=== PATIENT | male | born 1930 | race Caucasian/White ===

== ENCOUNTER 2018-03-11 00:08 | Inpatient (IN) | payer MEDICARE ==
--- NOTE | 2018-03-11 00:44 | ED ---
Respiratory - HPI Summary HPI Summary: Patient with history of Alzheimer's. Per , complains of productive cough, weakness 2 days. Patient normally ambulatory, unable to walk to the bathroom today, with subsequent incontinence. denies speech deficits, facial droop , unilateral weakness, fever, N/V, work of breathing, indication of pain. Patient denies any pain, or any other symptoms. Medical history is Alzheimer's , COPD, GERD, HDL. Denies cardiac history. Last admission to hospital 1 year ago. Patient lives at home. No recent course of antibiotics. gave patient 500 mg azithromycin today. Not on home O2. - History of Current Complaint Stated Complaint: WEAKNESS Time Seen by Provider: 03/11/18 00:23 Hx Obtained From: Patient, Family/Automation Controls Engineer Onset/Duration: Gradual Onset Timing: Constant Initial Severity: Mild Current Severity: Moderate Character: Cough (Productive) Sputum Color: Yellow - Risk Factors Pulmonary Embolism Risk Factors: Negative Cardiac Risk Factors: Elevated Lipids Pseudomonas Risk Factors: Chronic Lung Disease - Allergy/Home Medications Allergies/Adverse Reactions: Allergies Allergy/AdvReac Type Severity Reaction Status Date / Time Penicillins Allergy Unknown Verified 03/11/18 00:41 Reaction Details Home Medications: Home Medications Donepezil TAB* [Aricept 5 MG TAB*] 10 mg PO DAILY 03/11/18 [History Confirmed ] Lansoprazole [Prevacid] 15 mg PO DAILY 03/11/18 [History Confirmed 03/11/18] Lovastatin [Altoprev] 20 mg PO DAILY 03/11/18 [History Confirmed 03/11/18] Memantine TAB* [Namenda TAB*] 10 mg PO BID 03/11/18 [History Confirmed 03/11/18] Theophylline TAB* [Alex Dur*] 400 mg PO DAILY 03/11/18 [History Confirmed ] PMH/Surg Hx/FS Hx/Imm Hx Endocrine/Hematology History: Denies: Hx Diabetes Musculoskeletal History: Comment Only: Other Musculoskeletal History - Bilateral knee replacements. Sensory History: Reports: Hx Contacts or Glasses Opthamlomology History: Reports: Hx Contacts or Glasses Neurological History: Reports: Hx Dementia - Surgical History Surgery Procedure, Year, and Place: Bilat knee replacements. Infectious Disease History: Denies: Traveled Outside the [place] in Last 30 Days - Social History Substance Use Type: Reports: None Review of Systems Constitutional: Negative Eyes: Negative ENT: Negative Cardiovascular: Negative Respiratory: Negative Gastrointestinal: Negative Genitourinary: Negative Musculoskeletal: Negative Skin: Negative Neurological: Negative Positive: Weakness. Negative: Slurred Speech Psychological: Normal All Other Systems Reviewed And Are Negative: Yes Physical Exam - Summary Physical Exam Summary: Neuro exam normal. Abdomen soft nontender. Triage Information Reviewed: Yes Vital Signs Reviewed: Yes Appearance: Positive: Well-Appearing Skin: Positive: Warm Head/Face: Positive: Normal Head/Face Inspection Eyes: Positive: Normal Neck: Positive: Supple Respiratory/Lung Sounds: Positive: Breath Sounds Present Cardiovascular: Positive: Normal Abdomen Description: Positive: Nontender Musculoskeletal: Positive: Normal Neurological: Positive: Normal Psychiatric: Positive: Normal AVPU Assessment: Alert - [place] Coma Scale Best Eye Response: 4 - Spontaneous Best Motor Response: 6 - Obeys Commands Best Verbal Response: 5 - Oriented Coma Scale Total: 15 Diagnostics - Laboratory Result Diagrams: 03/11/18 00:55 03/11/18 00:55 Lab Statement: Any lab studies that have been ordered have been reviewed, and results considered in the medical decision making process. - Radiology cxr Xray Interpretation: Positive (See Comments) - Bibasilar infiltrates Radiology Interpretation Completed By: ED Physician - EKG 1 Cardiac Rate: NL EKG Rhythm: Sinus Rhythm ST Segment: Normal Disposition - Course Course Of Treatment: Patient nonseptic. Borderline PO2. Troponin elevated. - Diagnoses Provider Diagnoses: Community acquired pneumonia, Elevated troponin I level Discharge - Sign-Out/Discharge Documenting (check all that apply): Sign-Out Patient Signing out patient TO: Veena Sesay - pending admission and review by hospitalist - Discharge Plan Condition: Stable Disposition: ADMITTED TO [facility] Referrals: Dharmesh Crespo MD [Primary Care Provider] - - Billing Disposition and Condition Condition: STABLE [place] [place]
[2018-03-11 01:15] LABS: ABS Basophils 0.1 10^3/ul (0-0.2); ABS Eosinophils 0 10^3/ul (0-0.6); ABS Lymphocytes 0.6 10^3/ul (1.0-4.8); ABS Monocytes 0.5 10^3/ul (0-0.8); ABS Neutrophils 4.5 10^3/ul (1.5-7.7); ABS Nucleated RBC 0 10^3/ul; Eosinophil % 0.9 % (0-6); Hematocrit 37 % (42-52); Hemoglobin 12.7 g/dl (14.0-18.0); Lymphocyte % 11.2 % (25-47); Mean Corpuscular HGB Conc 34 g/dl (31-36); Mean Corpuscular Hemoglobin 32 pg (27-31); Mean Corpuscular Volume 94 fL (80-94); Mean Platelet Volume 7.2 um3 (7.4-10.4); Nucleated Red Blood Cells % 0.1; Platelet Count 185 10^3/ul (150-450); Red Blood Count 3.93 10^6/ul (4.0-5.4); Red Cell Distribution Width 13 % (10.5-15); White Blood Count 5.8 10^3/ul (3.5-10.8)
[2018-03-11] MEDS ORDERED: Albuterol/Ipratropium NEB.SOL* Albuterol 2.5 MG/Ipratropium 0.5 MG 3 ML INH ONE (01:15)
[2018-03-11] MEDS ORDERED: Azithromycin IV* 500 MG ADVAN VIAL/BAG IVPB ONE (01:18)
[2018-03-11] MEDS ORDERED: Levofloxacin 750 MG IVPREMIX(* 750 MG/150 ML BAG IVPB ONE (01:23)
[2018-03-11] MEDS ORDERED: methylPREDNISolone 125 MG* 2 ML VIAL IV ONE (01:23)
[2018-03-11 01:31] LABS: EGFR Non-African American 58.7 (>60)
[2018-03-11] MEDS ORDERED: LORazepam INJ* 2 MG/ML 1 ML VIAL IV PUSH ONE (02:59)
[2018-03-11] MEDS ORDERED: LORazepam INJ* 2 MG/ML 1 ML VIAL ONE (03:00)
[2018-03-11] MEDS ORDERED: Acetaminophen TAB* 325 MG PO PRN (05:16)
[2018-03-11] MEDS ORDERED: CMCS - Melatonin (NF) 3 MG TAB PO PRN (05:17)
[2018-03-11] MEDS ORDERED: Ondansetron INJ* 2 MG/ML VIAL IV PRN (05:17)
[2018-03-11] MEDS ORDERED: NS 0.9% 1000 ML* 1,000 ML IV SCH (05:30)
[2018-03-11] MEDS ORDERED: Ondansetron ODT TAB* 4 MG PO PRN (05:40)
[2018-03-11] MEDS ORDERED: Albuterol 2.5 MG/3 ML NEB.SOL* (0.083%) INH PRN (06:30)
--- NOTE | 2018-03-11 06:38 | HP ---
H&P (Free Text) History and Physical: PCP: Patricia Crespo MD Date/Time: 03/11/2018 0500 CC: generalized weakness HPI: Mr Dan is an 87YO male HX Alzheimer's, COPD, GERD w/ Mckay's esophagus, HLD, & BPH who presents from home where his related to ED staff he has been becoming progressively weak associated with productive cough over the past 2 days. He is typically able to ambulate without much difficulty, but experienced incontinence today due to not being able to walk steadily. Upon my evaluation he is somnolent from lorazepam and cannot be roused enough to answer questions. Per ED nursing, he was confused and agitated making him unable to give a history prior to sedation. As such this information is obtained from ED staff and the available medical record. PMedHx Alzheimer's COPD GERD w/ Mckay's esophagus HLD BPH Ambulatory Orders Donepezil TAB* [Aricept 5 MG TAB*] 10 mg PO DAILY 03/11/18 Lansoprazole [Prevacid] 15 mg PO DAILY 03/11/18 Lovastatin [Altoprev] 20 mg PO DAILY 03/11/18 Memantine TAB* [Namenda TAB*] 10 mg PO BID 03/11/18 Theophylline TAB* [Alex Dur*] 400 mg PO DAILY 03/11/18 Allergies Penicillins Allergy (Verified 03/11/18 00:41) Unknown Reaction Details PSurgHx B TKA SocHx: no tobacco, occasional alcohol, no recreational drugs; lives with his ; full code status, needs revisiting FamHx: unobtainable ROS: as above, otherwise reviewed and all were negative vitals: Vital Signs Temp 37.6 C 03/11/18 00:36 Pulse 80 03/11/18 04:04 Resp 20 03/11/18 04:04 BP 115/73 03/11/18 04:04 Pulse Ox 93 03/11/18 04:04 Intake & Output 03/10/18 03/10/18 03/11/18 11:59 23:59 11:59 Intake Total 500 Balance 500 Weight 79.379 kg Intake: IV Fluids 250 IVPB 250 Constitutional: NAD, normally developed, well-nourished elderly white male HEENM: atraumatic; sclera/conjunctiva: anicteric/mildly injected OU; hearing: unable to assess; oropharynx: clear, mucosa tacky Neck: soft tissue: no nuchal rigidity; thyroid: normal Pulmonary: scant crackles R base, fair aeration, no accessory muscle use CV: RR/RR, normal S1S2, no carotid bruit, no jugular venous distention, 2+ B DP/ PT, 1+ BLE edema Abdominal: soft, non-distended, non-tender, no rebound/guarding/rigidity, normoactive bowel sounds, no hepatosplenomegaly or masses, no costovertebral angle tenderness Musculoskeletal: general: grossly intact, shins tender to palpation Integumental: normal appearance and texture of exposed skin Psychiatric orientation: somnolent, arouses, mumbles incoherently and quickly returns to sleep affect: somnolent mood: acquiescent eye contact: poor content: absent responses: mumbles incoherently when awakened, withdraws purposefully to noxious stimuli; moves extremities x4 insight: poor Testing: Lab Results 03/11/18 03/11/18 03/11/18 Range/Units 00:55 00:55 00:55 WBC 5.8 (3.5-10.8) 10^3/ul RBC 3.93 L (4.0-5.4) 10^6/ul Hgb 12.7 L (14.0-18.0) g/dl Hct 37 L (42-52) % MCV 94 (80-94) fL MCH 32 H (27-31) pg MCHC 34 (31-36) g/dl RDW 13 (10.5-15) % Plt Count 185 (150-450) 10^3/ul MPV 7.2 L (7.4-10.4) um3 Neut % (Auto) 77.6 (38-83) % Lymph % (Auto) 11.2 L (25-47) % [place] % (Auto) 9.1 H (0-7) % Eos % (Auto) 0.9 (0-6) % Baso % (Auto) 1.2 (0-2) % Absolute Neuts (auto) 4.5 (1.5-7.7) 10^3/ul Absolute Lymphs (auto) 0.6 L (1.0-4.8) 10^3/ul Absolute Monos (auto) 0.5 (0-0.8) 10^3/ul Absolute Eos (auto) 0 (0-0.6) 10^3/ul Absolute Basos (auto) 0.1 (0-0.2) 10^3/ul Absolute Nucleated RBC 0 10^3/ul Nucleated RBC % 0.1 ABG pH (7.35-7.45) ABG pCO2 (35-45) mmHg ABG pO2 (80-100) mmHg ABG HCO3 (19-31) mmol/L ABG O2 Saturation (95-98) % ABG Base Excess (-2.0-2.0) Sodium 138 L (139-145) mmol/L Potassium 4.2 (3.5-5.0) mmol/L Chloride 103 (101-111) mmol/L Carbon Dioxide 27 (22-32) mmol/L Anion Gap 8 (2-11) mmol/L BUN 16 (6-24) mg/dL Creatinine 1.17 (0.67-1.17) mg/dL Est GFR ( Amer) 75.5 (>60) Est GFR (Non-Af Amer) 58.7 (>60) BUN/Creatinine Ratio 13.7 (8-20) Glucose 117 H (70-100) mg/dL Lactic Acid 1.2 (0.5-2.0) mmol/L Calcium 9.7 (8.6-10.3) mg/dL Total Bilirubin 0.60 (0.2-1.0) mg/dL AST 16 (13-39) U/L ALT 10 (7-52) U/L Alkaline Phosphatase 56 (34-104) U/L Troponin I 0.04 H* (<0.04) ng/mL B-Natriuretic Peptide ( - 100) pg/mL Total Protein 7.2 (6.4-8.9) g/dL Albumin 4.2 (3.2-5.2) g/dL Globulin 3.0 (2-4) g/dL Albumin/Globulin Ratio 1.4 (1-3) 03/11/18 03/11/18 03/11/18 Range/Units 01:05 01:23 03:27 WBC (3.5-10.8) 10^3/ul RBC (4.0-5.4) 10^6/ul Hgb (14.0-18.0) g/dl Hct (42-52) % MCV (80-94) fL MCH (27-31) pg MCHC (31-36) g/dl RDW (10.5-15) % Plt Count (150-450) 10^3/ul MPV (7.4-10.4) um3 Neut % (Auto) (38-83) % Lymph % (Auto) (25-47) % [place] % (Auto) (0-7) % Eos % (Auto) (0-6) % Baso % (Auto) (0-2) % Absolute Neuts (auto) (1.5-7.7) 10^3/ul Absolute Lymphs (auto) (1.0-4.8) 10^3/ul Absolute Monos (auto) (0-0.8) 10^3/ul Absolute Eos (auto) (0-0.6) 10^3/ul Absolute Basos (auto) (0-0.2) 10^3/ul Absolute Nucleated RBC 10^3/ul Nucleated RBC % ABG pH 7.48 H (7.35-7.45) ABG pCO2 37 (35-45) mmHg ABG pO2 60 L (80-100) mmHg ABG HCO3 27.9 (19-31) mmol/L ABG O2 Saturation 94.6 L (95-98) % ABG Base Excess 4.0 H (-2.0-2.0) Sodium (139-145) mmol/L Potassium (3.5-5.0) mmol/L Chloride (101-111) mmol/L Carbon Dioxide (22-32) mmol/L Anion Gap (2-11) mmol/L BUN (6-24) mg/dL Creatinine (0.67-1.17) mg/dL Est GFR ( Amer) (>60) Est GFR (Non-Af Amer) (>60) BUN/Creatinine Ratio (8-20) Glucose (70-100) mg/dL Lactic Acid (0.5-2.0) mmol/L Calcium (8.6-10.3) mg/dL Total Bilirubin (0.2-1.0) mg/dL AST (13-39) U/L ALT (7-52) U/L Alkaline Phosphatase (34-104) U/L Troponin I 0.04 H* (<0.04) ng/mL B-Natriuretic Peptide 104 H ( - 100) pg/mL Total Protein (6.4-8.9) g/dL Albumin (3.2-5.2) g/dL Globulin (2-4) g/dL Albumin/Globulin Ratio (1-3) ECG, personally reviewed: NSR rate 84, Q-waves V1-3, no ischemia CXR, personally reviewed: possible RLL infiltrate, although could be atelectasis compared to prior Impression: 87M presenting with suspected CAP DIAGNOSIS & PLAN Primary suspect CAP : IV levofloxacin 750mg IV Q48H, renal dosing : IVFs : blood & sputum CXs : supplemental oxygen : supportive care Secondary Alzheimer's : continue donepezil & memantine COPD : continue theophylline : albuterol nebs PRN GERD w/ Mckay's esophagus : continue lansoprazole HLD : continue lovastatin Admission Rational: inpatient for IVFs & IV ABX for CAP in patient at high risk of mortality/morbidity; inappropriate for outpatient status DVTp: SCDs & heparin SQ Code Status: full, needs revisiting HCP:
[2018-03-11 07:03] LABS: ABS Basophils 0 10^3/ul (0-0.2); ABS Eosinophils 0 10^3/ul (0-0.6); ABS Lymphocytes 0.4 10^3/ul (1.0-4.8); ABS Monocytes 0.1 10^3/ul (0-0.8); ABS Neutrophils 4.3 10^3/ul (1.5-7.7); ABS Nucleated RBC 0 10^3/ul; Eosinophil % 0 % (0-6); Hematocrit 34 % (42-52); Lymphocyte % 9.1 % (25-47); Mean Corpuscular HGB Conc 35 g/dl (31-36); Mean Corpuscular Hemoglobin 32 pg (27-31); Mean Corpuscular Volume 93 fL (80-94); Mean Platelet Volume 6.6 um3 (7.4-10.4); Nucleated Red Blood Cells % 0; Platelet Count 174 10^3/ul (150-450); Red Blood Count 3.69 10^6/ul (4.0-5.4); Red Cell Distribution Width 13 % (10.5-15); White Blood Count 4.9 10^3/ul (3.5-10.8)
[2018-03-11 07:19] LABS: INR 0.99 (0.77-1.02)
[2018-03-11 07:25] LABS: EGFR Non-African American 62.4 (>60)
[2018-03-11] MEDS: Donepezil TAB* 5 MG PO SCH ×2 (08:31→12:43)
[2018-03-11] MEDS: guaiFENesin ER TAB 600 MG PO SCH ×3 (08:31→19:51)
[2018-03-11] MEDS: Docusate CAP* 100 MG PO SCH ×3 (08:31→19:51)
[2018-03-11] MEDS: Atorvastatin* 10 MG TAB PO SCH ×2 (08:32→12:43)
[2018-03-11] MEDS: Memantine TAB* 10 MG PO SCH ×3 (08:32→19:51)
[2018-03-11] MEDS: Omeprazole CAP* 20 MG PO SCH ×2 (08:32→12:43)
[2018-03-11] MEDS: THEOPHYLLINE TAB.SA* 200 MG PO SCH (08:40)
--- NOTE | 2018-03-11 09:19 | RAD ---
Indication: Weakness. Comparison: April 27, 2013 Technique: Upright AP 0054 hours Report: Mild predominant linear bibasilar consolidation. Rarefaction of the interstitial markings. Grossly clear pleural spaces. Negative for pneumothorax. The heart, pulmonary vasculature, and mediastinal contours are unremarkable. IMPRESSION: Stigmata of emphysema. Bibasilar consolidation most suspicious for atelectasis.
[2018-03-11 18:34] LABS: Urine Appearance Clear; Urine Blood 1+ (Negative); Urine Color Straw; Urine Ketones Negative (Negative); Urine Protein Negative (Negative); Urine Specific Gravity 1.009 (1.010-1.030); Urine Urobilinogen Negative (Negative)
[2018-03-12] MEDS ORDERED: Benzonatate CAP* 100 MG PO PRN (05:07)
[2018-03-12] MEDS: Heparin VIAL(*) 5000 UNITS/ML VIAL (FIVE THOUSAND) SUBCUT SCH ×3 (05:56→21:17)
[2018-03-12 06:01] LABS: ABS Basophils 0 10^3/ul (0-0.2); ABS Eosinophils 0 10^3/ul (0-0.6); ABS Lymphocytes 1.6 10^3/ul (1.0-4.8); ABS Neutrophils 5.5 10^3/ul (1.5-7.7); ABS Nucleated RBC 0 10^3/ul; Eosinophil % 0.2 % (0-6); Hematocrit 35 % (42-52); Hemoglobin 12.2 g/dl (14.0-18.0); Lymphocyte % 19.7 % (25-47); Mean Corpuscular HGB Conc 35 g/dl (31-36); Mean Corpuscular Hemoglobin 33 pg (27-31); Mean Corpuscular Volume 94 fL (80-94); Mean Platelet Volume 7.2 um3 (7.4-10.4); Nucleated Red Blood Cells % 0; Platelet Count 175 10^3/ul (150-450); Red Blood Count 3.76 10^6/ul (4.0-5.4); Red Cell Distribution Width 13 % (10.5-15); White Blood Count 8.1 10^3/ul (3.5-10.8)
[2018-03-12 06:26] LABS: EGFR Non-African American 65.8 (>60)
[2018-03-12] MEDS: guaiFENesin ER TAB 600 MG PO SCH ×2 (08:42→21:00)
[2018-03-12] MEDS: Atorvastatin* 10 MG TAB PO SCH (08:42)
[2018-03-12] MEDS: Docusate CAP* 100 MG PO SCH ×2 (08:43→20:59)
[2018-03-12] MEDS: THEOPHYLLINE TAB.SA* 200 MG PO SCH (08:43)
[2018-03-12] MEDS: Omeprazole CAP* 20 MG PO SCH (08:44)
[2018-03-12] MEDS: Donepezil TAB* 5 MG PO SCH (08:44)
[2018-03-12] MEDS: Memantine TAB* 10 MG PO SCH ×2 (08:44→21:00)
--- NOTE | 2018-03-12 18:31 | PN ---
Subjective Date of Service: 03/12/18 Interval History: . still very confused pulled out IV overnight disoriented still with oxygen requirement and receiving IV antibiotics. denies new pain. shortness of breath ongoing. . Family History: Unchanged from Admission Social History: Unchanged from Admission Past Medical History: Unchanged from Admission Objective Active Medications: . Acetaminophen (Tylenol Tab*) 650 mg PO Q6H PRN PRN Reason: FEVER/PAIN Albuterol (Ventolin 2.5 Mg/3 Ml Neb.Ernestine*) 2.5 mg INH Q2H PRN PRN Reason: SOB/WHEEZING Atorvastatin Calcium (Lipitor*) 5 mg PO DAILY [facility] Last Admin: 03/12/18 08:42 Dose: 5 mg Benzonatate (Tessalon Cap*) 100 mg PO BID PRN PRN Reason: COUGH Last Admin: 03/12/18 05:56 Dose: 100 mg Docusate Sodium (Colace Cap*) 200 mg PO BID [facility] Last Admin: 03/12/18 08:43 Dose: 200 mg Donepezil HCl (Aricept Tab*) 10 mg PO DAILY [facility] Last Admin: 03/12/18 08:44 Dose: 10 mg Guaifenesin (Mucinex*) 1,200 mg PO BID [facility] Last Admin: 03/12/18 08:42 Dose: 1,200 mg Heparin Sodium (Porcine) (Heparin Vial(*)) 5,000 units SUBCUT Q8HR [facility] Last Admin: 03/12/18 13:10 Dose: 5,000 units Levofloxacin/Dextrose (Levaquin 750 Mg Ivpremix(*)) 750 mg in 150 mls @ 100 mls /hr IVPB Q48H [facility] Melatonin (Melatonin (Nf)) 3 mg PO BEDTIME PRN; Protocol PRN Reason: Sleep Memantine (Namenda Tab*) 10 mg PO BID [facility] Last Admin: 03/12/18 08:44 Dose: 10 mg Omeprazole (Prilosec Cap*) 20 mg PO DAILY [facility] PRN Reason: Protocol Last Admin: 03/12/18 08:44 Dose: 20 mg Ondansetron HCl (Zofran Odt Tab*) 4 mg PO Q6H PRN PRN Reason: NAUSEA/VOMITING Theophylline (Alex Dur*) 400 mg PO DAILY [facility] Last Admin: 03/12/18 08:43 Dose: 400 mg . Vital Signs - 8 hr 03/12/18 03/12/18 11:18 15:27 Temperature 98.3 F 97.3 F Pulse Rate 69 71 Respiratory 17 22 Rate Blood Pressure 143/88 141/91 (mmHg) O2 Sat by Pulse 93 96 Oximetry Oxygen Devices in Use Now: Nasal Cannula Appearance: elderly, frail; demented Eyes: No Scleral Icterus Ears/Nose/Mouth/Throat: NL Teeth, Lips, Gums, Clear Oropharnyx, Mucous Membranes Moist Neck: NL Appearance and Movements; NL JVP Respiratory: Symmetrical Chest Expansion and Respiratory Effort, Clear to Auscultation Cardiovascular: NL Sounds; No Murmurs; No JVD Abdominal: NL Sounds; No Tenderness; No Distention Lymphatic: No Cervical Adenopathy Extremities: No Edema Skin: No Rash or Ulcers Neurological: NL Sensation Lines/Tubes/Other Access: Clean, Dry and Intact Peripheral IV Nutrition: Taking PO's Result Diagrams: 03/12/18 05:29 03/12/18 05:29 Microbiology and Other Data: Microbiology 03/11/18 18:17 Urine Culture - Final Urine No Growth (<1,000 CFU/mL) 03/11/18 18:17 Legionella Urinary Antigen - Final Urine Negative Legionella Antigen Streptococcus pneumoniae Ag Screen - Final Negative S. pneumo Antigen 03/11/18 06:30 Influenza Types A,B Antigen (GAL) - Final Nasal Specimen received for Influenza A/B Molecular testing Assess/Plan/Problems-Billing . Assessment: 87 yo man with h/o Alzheimer's, COPD, GERD, Mckay's Esophagus, HLD, and BPH who presents from home where his related to ED staff he has been becoming progressively weak associated with productive cough over the past 2 days. Diagnosed with community acquired pneumonia. - IV levofloxacin 750mg IV Q48H, renal dosing - IVFs - blood & sputum CXs no growth to date - supplemental oxygen -supportive care
[2018-03-13] MEDS: Heparin VIAL(*) 5000 UNITS/ML VIAL (FIVE THOUSAND) SUBCUT SCH (05:42)
[2018-03-13] MEDS ORDERED: Levofloxacin 750 MG IVPREMIX(* 750 MG/150 ML BAG IVPB SCH (06:00)
[2018-03-13] MEDS: Atorvastatin* 10 MG TAB PO SCH (08:58)
[2018-03-13] MEDS: guaiFENesin ER TAB 600 MG PO SCH (08:59)
[2018-03-13] MEDS: Memantine TAB* 10 MG PO SCH (08:59)
[2018-03-13] MEDS: Docusate CAP* 100 MG PO SCH (08:59)
[2018-03-13] MEDS: Donepezil TAB* 5 MG PO SCH (08:59)
[2018-03-13] MEDS: Omeprazole CAP* 20 MG PO SCH (08:59)
[2018-03-13] MEDS: THEOPHYLLINE TAB.SA* 200 MG PO SCH (08:59)
--- NOTE | 2018-03-13 11:27 | PN ---
Subjective Date of Service: 03/13/18 Interval History: Patient alert, confused sitting up in bed. Answering some question and follows some commands. Denies pain or SOB. Per at bedside he is at his baseline. She would like to take him home and states he has improved "greatly" since admission. Per primary nurse he is ambulating well with steady gait. Family History: Unchanged from Admission Social History: Unchanged from Admission Past Medical History: Unchanged from Admission Objective Active Medications: Acetaminophen (Tylenol Tab*) 650 mg PO Q6H PRN PRN Reason: FEVER/PAIN Last Admin: 03/12/18 20:59 Dose: 650 mg Albuterol (Ventolin 2.5 Mg/3 Ml Neb.Ernestine*) 2.5 mg INH Q2H PRN PRN Reason: SOB/WHEEZING Atorvastatin Calcium (Lipitor*) 5 mg PO DAILY [facility] Last Admin: 03/13/18 08:58 Dose: Not Given Benzonatate (Tessalon Cap*) 100 mg PO BID PRN PRN Reason: COUGH Last Admin: 03/12/18 05:56 Dose: 100 mg Docusate Sodium (Colace Cap*) 200 mg PO BID [facility] Last Admin: 03/13/18 08:59 Dose: Not Given Donepezil HCl (Aricept Tab*) 10 mg PO DAILY [facility] Last Admin: 03/13/18 08:59 Dose: Not Given Guaifenesin (Mucinex*) 1,200 mg PO BID [facility] Last Admin: 03/13/18 08:59 Dose: Not Given Heparin Sodium (Porcine) (Heparin Vial(*)) 5,000 units SUBCUT Q8HR [facility] Last Admin: 03/13/18 05:42 Dose: 5,000 units Levofloxacin/Dextrose (Levaquin 750 Mg Ivpremix(*)) 750 mg in 150 mls @ 100 mls /hr IVPB Q48H [facility] Last Admin: 03/13/18 05:41 Dose: 100 mls/hr Melatonin (Melatonin (Nf)) 3 mg PO BEDTIME PRN; Protocol PRN Reason: Sleep Memantine (Namenda Tab*) 10 mg PO BID [facility] Last Admin: 03/13/18 08:59 Dose: Not Given Omeprazole (Prilosec Cap*) 20 mg PO DAILY [facility] PRN Reason: Protocol Last Admin: 03/13/18 08:59 Dose: Not Given Ondansetron HCl (Zofran Odt Tab*) 4 mg PO Q6H PRN PRN Reason: NAUSEA/VOMITING Theophylline (Alex Dur*) 400 mg PO DAILY [facility] Last Admin: 03/13/18 08:59 Dose: Not Given Vital Signs - 8 hr 03/13/18 08:00 Temperature 97.8 F Pulse Rate 90 Blood Pressure 138/81 (mmHg) O2 Sat by Pulse 94 Oximetry Oxygen Devices in Use Now: None Appearance: well developed elderly male alert, confusd in NAD Eyes: No Scleral Icterus, PERRLA Ears/Nose/Mouth/Throat: Mucous Membranes Moist Neck: NL Appearance and Movements; NL JVP Respiratory: Symmetrical Chest Expansion and Respiratory Effort, Clear to Auscultation Cardiovascular: NL Sounds; No Murmurs; No JVD, RRR, No Edema Abdominal: NL Sounds; No Tenderness; No Distention Extremities: No Edema, No Clubbing, Cyanosis Skin: No Rash or Ulcers, No Nodules or Sclerosis Neurological: Alert and Oriented x 3, NL Sensation, NL Muscle Strength and Tone Lines/Tubes/Other Access: Clean, Dry and Intact Peripheral IV Nutrition: Taking PO's Result Diagrams: 03/12/18 05:29 03/12/18 05:29 Microbiology and Other Data: Microbiology 03/11/18 18:17 Urine Culture - Final Urine No Growth (<1,000 CFU/mL) 03/11/18 18:17 Legionella Urinary Antigen - Final Urine Negative Legionella Antigen Streptococcus pneumoniae Ag Screen - Final Negative S. pneumo Antigen 03/11/18 06:30 Influenza Types A,B Antigen (GAL) - Final Nasal Specimen received for Influenza A/B Molecular testing Assess/Plan/Problems-Billing . Assessment: 87 yo man with h/o Alzheimer's, COPD, GERD, Mckay's Esophagus, HLD, and BPH who presents from home where his related to ED staff he has been becoming progressively weak associated with productive cough over the past 2 days. - Patient Problems (1) CAP (community acquired pneumonia) Comment: - IV levofloxacin 750mg IV Q48H, renal dosing - blood & sputum CXs no growth to date - supplemental oxygen weaned to off (2) DVT prophylaxis Comment: HSQ Status and Disposition: inpatient. Plan for DC to home today. Ambulating independently per at baseline. Swallow eval: passed with thin liquids and normal consistency foods
[2018-03-13 13:20] VITALS: BP 105/68
--- NOTE | 2018-03-13 16:50 | DS ---
CC: Dr. Dharmesh Crespo. * DISCHARGE SUMMARY: DATE OF ADMISSION: 03/11/18 DATE OF DISCHARGE: 03/13/18 PROVIDER: Clem Amin NP ATTENDING PHYSICIAN: Dr. Edmonds * (report dictated by James Amin NP). PRIMARY CARE PROVIDER: Dr. Dharmesh Crespo. DISCHARGE DIAGNOSIS: Community-acquired pneumonia. SECONDARY DIAGNOSES: 1. Alzheimer's dementia. 2. Chronic obstructive pulmonary disease. 3. Gastroesophageal reflux disease with Mckay's esophagus. 4. Hyperlipidemia. 5. Benign prostatic hyperplasia. HISTORY OF PRESENT ILLNESS AND HOSPITAL COURSE: Please see history and physical by Dr. Akhtar for full admission details, but in summary this is an 87-year-old male with a past medical history of COPD, Alzheimer's dementia, history of GERD with Mckay's esophagus, who presented to the emergency department from home via EMS for progressive weakness associated with a productive cough over the prior 2 days. Per his who is a full-time caregiver, she reports that he had a productive cough and had progressive weakness to the point where she could not get him out of bed and she called the ambulance to bring him to the emergency department. She thinks he possibly had a fever, but was unsure. In the emergency department, he was admitted to the hospitalist service for suspicion of community-acquired pneumonia and was started on Levaquin 750 mg IV q.48 hours of renal dosing. He has dramatically improved over the past 2 days, and per his today, he is back to his baseline. He initially was put on supplemental oxygen of 2 L nasal cannula and has been weaned off. He is ambulating around the unit with a steady gait independently as well as maintaining his oxygenation greater than 92 to 94% with exertion and ambulation. On admission, he had had no leukocytosis and has remained afebrile throughout hospitalization. On admission, he did have a note of low grade temp of 99.7. His vital signs remained stable throughout hospitalization. Chest x-ray, impression: "Stigmata of emphysema. Bibasilar consolidation most suspicious for atelectasis." He had no wheezing noted through hospitalization and did not require steroids. He was given nebulizers p.r.n. He was noted to have a productive cough, but in the last 24 hours not producing much sputum. He tested negative for influenza A and B. Negative blood cultures to date as well as negative urine culture. His is currently at his bedside reporting she would like to take him home in that he is back to baseline. At his baseline, he has significant advanced dementia and does answer some questions appropriately, but mostly is confused. He has been set up with visiting nurse service through [facility]. DIAGNOSTIC STUDIES/LAB DATA: On 03/12/18: Sodium 138, potassium 4.2, chloride 110, carbon dioxide 25, anion gap 3, BUN 20, creatinine 1.06, glucose 99, calcium 9.1. WBC is 8.1, Hbg 12.2, Hct 35, MCV 94, MCH 33, MCHC 35, RDW 13, platelet count 175. DISCHARGE MEDICATIONS: 1. Lovastatin 20 mg PO Daily 2. Aricept 5 mg PO Daily 3. Namenda 10 PO BID 4. Prevacid 15 mg PO Daily 5. Theophylline 400 mg PO Daily 6. Levaquin 750 mg PO Daily x 5 days DISCHARGE PLAN: 1. Patient is stable for discharge to home in care of his . 2. Followup with Dr. Crespo, PCP within 1 to 3 days. TIME SPENT: Approximately 45 minutes was spent on this discharge. CLEM AMIN, GAS ENGINE OPERATOR [id number]/CPS #: [id number] LORIE
== END 2018-03-13 14:29 | disposition home health service (06) | DRG 194 ==
LOC: ED 00:08 → MEDTELE 05:08
PROVIDERS: ADMIT Hospitalist; ATTEND Student in an Organized Health Care Education/Training Program
DX: J18.9 Pneumonia, unspecified organism (principal); J44.0 Chronic obstructive pulmonary disease with (acute) lower respiratory infection; G30.9 Alzheimer's disease, unspecified; F02.80 Dementia in other diseases classified elsewhere, unspecified severity, without behavioral disturbance, psychotic disturbance, mood disturbance, and anxiety; K22.70 Barrett's esophagus without dysplasia; E78.5 Hyperlipidemia, unspecified; N40.0 Benign prostatic hyperplasia without lower urinary tract symptoms; K21.9 Gastro-esophageal reflux disease without esophagitis; R32 Unspecified urinary incontinence; Z96.653 Presence of artificial knee joint, bilateral; R40.2412 Glasgow coma scale score 13-15, at arrival to emergency department; Z99.81 Dependence on supplemental oxygen; Z72.89 Other problems related to lifestyle; Z88.0 Allergy status to penicillin
CPT/HCPCS: 36415; 71045; 80048; 80053; 81003; 81015; 82803; 83605; 83880; 84484; 85025; 85610; 85730; 87040; 87086; 87502; 87899; 93005; 94640; 94760; 99285; A9270-GY; G8978-GP-CL; G8979-GP-CI; G8987-GO-CK; G8988-GO-CI; G8989-GO-CI; J0456; J1644; J2060; J2930

== ENCOUNTER 2018-10-27 10:30 | Inpatient (IN) | payer MEDICARE ==
[2018-10-27 11:20] LABS: Hematocrit 36 % (42-52); Hemoglobin 12.1 g/dl (14.0-18.0); Mean Corpuscular HGB Conc 34 g/dl (31-36); Mean Corpuscular Hemoglobin 33 pg (27-31); Mean Corpuscular Volume 98 fL (80-94); Red Blood Count 3.63 10^6/ul (4.00-5.40); Red Cell Distribution Width 13 % (10.5-15); White Blood Count 5.7 10^3/ul (3.5-10.8)
[2018-10-27 11:33] LABS: EGFR Non-African American 65.1 (>60)
[2018-10-27 11:48] LABS: ABS Basophils 0.1 10^3/ul (0-0.2); ABS Eosinophils 0.1 10^3/ul (0-0.6); ABS Lymphocytes 1.9 10^3/ul (1.0-4.8); ABS Monocytes 0.5 10^3/ul (0-0.8); ABS Neutrophils 3.2 10^3/ul (1.5-7.7); ABS Nucleated RBC 0 10^3/ul; Eosinophil % 1.3 %; Lymphocyte % 33.4 %; Mean Platelet Volume 7.2 fL (7.4-10.4); Nucleated Red Blood Cells % 0; Platelet Count 195 10^3/ul (150-450)
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
[2018-10-27] MEDS ORDERED: Acetaminophen TAB* 325 MG PO PRN (13:56)
[2018-10-27] MEDS ORDERED: Al Hydrox/Mg Hydrox/Simet LIQ* 30 ML UDC PO PRN (13:56)
[2018-10-27 15:48] LABS: Urine Appearance Cloudy; Urine Blood Negative (Negative); Urine Color Yellow; Urine Ketones Negative (Negative); Urine Protein Negative (Negative); Urine Specific Gravity 1.023 (1.010-1.030); Urine Urobilinogen Negative (Negative)
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
[2018-10-27] MEDS: Donepezil TAB* 5 MG PO SCH (19:24)
[2018-10-27] MEDS: Docusate CAP* 100 MG PO SCH (19:24)
[2018-10-27] MEDS: Memantine TAB* 10 MG PO SCH (19:24)
[2018-10-27] MEDS: Omeprazole CAP* 20 MG PO SCH (19:24)
[2018-10-27] MEDS: LORazepam TAB(*) 0.5 MG PO PRN (19:25)
[2018-10-27] MEDS: Heparin VIAL(*) 5000 UNITS/ML VIAL (FIVE THOUSAND) SUBCUT SCH ×2 (20:13→23:16)
[2018-10-28] MEDS: Heparin VIAL(*) 5000 UNITS/ML VIAL (FIVE THOUSAND) SUBCUT SCH ×3 (06:05→22:37)
[2018-10-28] MEDS: Omeprazole CAP* 20 MG PO SCH ×2 (07:44→22:16)
[2018-10-28] MEDS: Ascorbic Acid TAB* 500 MG PO SCH (07:44)
[2018-10-28] MEDS: THEOPHYLLINE TAB.SA* 200 MG PO SCH (07:45)
[2018-10-28] MEDS: Cholecalciferol TAB* 1000 UNITS PO SCH (07:45)
[2018-10-28] MEDS: Docusate CAP* 100 MG PO SCH ×2 (07:45→22:16)
[2018-10-28] MEDS: Memantine TAB* 10 MG PO SCH ×2 (07:45→22:16)
[2018-10-28] MEDS: Atorvastatin* 10 MG TAB PO SCH (07:45)
[2018-10-28] MEDS: CYANOCOBALAMIN 100 MCG PO SCH (07:46)
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
[2018-10-28] MEDS: Donepezil TAB* 5 MG PO SCH (22:16)
[2018-10-29] MEDS: Heparin VIAL(*) 5000 UNITS/ML VIAL (FIVE THOUSAND) SUBCUT SCH ×3 (07:11→21:23)
[2018-10-29] MEDS: Ascorbic Acid TAB* 500 MG PO SCH (09:21)
[2018-10-29] MEDS: Atorvastatin* 10 MG TAB PO SCH (09:21)
[2018-10-29] MEDS: THEOPHYLLINE TAB.SA* 200 MG PO SCH (09:21)
[2018-10-29] MEDS: Docusate CAP* 100 MG PO SCH ×2 (09:21→21:23)
[2018-10-29] MEDS: Memantine TAB* 10 MG PO SCH ×2 (09:22→21:22)
[2018-10-29] MEDS: CYANOCOBALAMIN 100 MCG PO SCH (09:22)
[2018-10-29] MEDS: Cholecalciferol TAB* 1000 UNITS PO SCH (09:22)
[2018-10-29] MEDS: Omeprazole CAP* 20 MG PO SCH ×2 (09:22→21:23)
[2018-10-29] MEDS: Donepezil TAB* 5 MG PO SCH (21:22)
[2018-10-30] MEDS: Heparin VIAL(*) 5000 UNITS/ML VIAL (FIVE THOUSAND) SUBCUT SCH ×3 (05:36→21:29)
[2018-10-30] MEDS: Omeprazole CAP* 20 MG PO SCH ×2 (10:46→20:01)
[2018-10-30] MEDS: Docusate CAP* 100 MG PO SCH ×2 (10:46→20:01)
[2018-10-30] MEDS: Memantine TAB* 10 MG PO SCH ×2 (10:46→20:01)
[2018-10-30] MEDS: Cholecalciferol TAB* 1000 UNITS PO SCH (10:47)
[2018-10-30] MEDS: Atorvastatin* 10 MG TAB PO SCH (10:47)
[2018-10-30] MEDS: Ascorbic Acid TAB* 500 MG PO SCH (10:47)
[2018-10-30] MEDS: Cyanocobalamin TAB* 500 MCG PO SCH (10:47)
[2018-10-30] MEDS: CYANOCOBALAMIN 100 MCG PO SCH (12:27)
[2018-10-30] MEDS: THEOPHYLLINE TAB.SA* 200 MG PO SCH (13:50)
[2018-10-30] MEDS: Donepezil TAB* 5 MG PO SCH (20:02)
[2018-10-30] MEDS: diPHENhydraMINE PO* 50 MG PO ONE (23:05)
[2018-10-30] MEDS: LORazepam TAB(*) 0.5 MG PO PRN (23:26)
[2018-10-31] MEDS: diPHENhydraMINE PO* 50 MG PO ONE (01:18)
[2018-10-31] MEDS: Heparin VIAL(*) 5000 UNITS/ML VIAL (FIVE THOUSAND) SUBCUT SCH ×2 (05:24→12:10)
[2018-10-31] MEDS: LORazepam TAB(*) 0.5 MG PO PRN (06:26)
[2018-10-31] MEDS: Cholecalciferol TAB* 1000 UNITS PO SCH (09:23)
[2018-10-31] MEDS: Atorvastatin* 10 MG TAB PO SCH (09:23)
[2018-10-31] MEDS: Cyanocobalamin TAB* 500 MCG PO SCH (09:23)
[2018-10-31] MEDS: Ascorbic Acid TAB* 500 MG PO SCH (09:24)
[2018-10-31] MEDS: Omeprazole CAP* 20 MG PO SCH (09:24)
[2018-10-31] MEDS: Docusate CAP* 100 MG PO SCH (09:24)
[2018-10-31] MEDS: Memantine TAB* 10 MG PO SCH (09:24)
[2018-10-31] MEDS: THEOPHYLLINE TAB.SA* 200 MG PO SCH (09:24)
[2018-10-31 11:14] VITALS: BP 128/79
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
== END 2018-10-31 12:55 | DRG 884 ==
LOC: ED 10:30 → MED 13:56 → OBSVTOIN 10-28 11:55
PROVIDERS: ADMIT Internal Medicine; ATTEND Internal Medicine
DX: F03.91 Unspecified dementia, unspecified severity, with behavioral disturbance (principal); J44.9 Chronic obstructive pulmonary disease, unspecified; K21.9 Gastro-esophageal reflux disease without esophagitis; E78.5 Hyperlipidemia, unspecified; N40.0 Benign prostatic hyperplasia without lower urinary tract symptoms; Z96.653 Presence of artificial knee joint, bilateral; Z88.0 Allergy status to penicillin; Z87.891 Personal history of nicotine dependence
CPT/HCPCS: 36415; 70450; 80053; 80198; 81003; 82607; 84443; 85025; 99284; A9270-GY; G0378; J1644